=== PATIENT | female | born 1965 | race Caucasian/White ===

== ENCOUNTER 2020-06-11 13:52 | Emergency (ER) | payer BC ==
[2020-06-11 14:16] VITALS: BP 127/89; PULSE 75
[2020-06-11 15:20] LABS: ANION GAP 12.9 mEq/L (7-13); CHLORIDE,CL 105 mmol/L (98-107); SODIUM,NA 139 mmol/L (136-145)
--- NOTE | 2020-06-11 15:22 | EDM.PDOC ---
ED HPI GENERAL MEDICAL PROBLEM - General Chief Complaint: General Stated Complaint: UTI Time Seen by Provider: 06/11/20 14:30 Source of Information: Reports: Patient, RN, RN Notes Reviewed History Limitations: Reports: No Limitations - History of Present Illness INITIAL COMMENTS - FREE TEXT/NARRATIVE: Patient presents to the ED via personal vehicle for complaints of dysuria, marlena bility to completely void, headache, and dizziness. The patient reports she was treated for a UTI approximately one week ago by her primary care provider with Bactrim. She states she has still been experiencing symptoms of a UTI despite treatment. She denies fever, shaking chills, or palpitations. Additionally, the patient attests to headache which she has had for the past 10 days. She has been taking Excedrin migraine with [id number] improvement in symptoms. She attest to photophobia, phonophobia, nausea, vomiting, and diarrhea. The patient notes an increase in health problems since her filed for divorce from her in December 2019. She states she has been started on new anxiolytic medication. - Related Data Allergies Allergy/AdvReac Type Severity Reaction Status Date / Time amoxicillin Allergy Anaphylactic Verified 06/11/20 14:14 Shock aspirin Allergy Nausea and Verified 06/11/20 14:14 Vomiting cephalexin Allergy Swelling Verified 06/11/20 14:14 Home Meds: Home Meds Acetaminophen [Tylenol Extra Strength] 1,000 mg PO Q6H PRN 09/05/15 [History] Gabapentin 600 mg PO BID 09/05/15 [History] Omeprazole 20 mg PO DAILY PRN 04/13/18 [History] Gabapentin [Neurontin] 600 mg PO BID 09/02/18 [History] Zolpidem Tartrate 5 mg PO DAILY 09/02/18 [History] traZODone HCl [Trazodone HCl] 300 mg PO BEDTIME 09/02/18 [History] Topiramate 25 mg PO DAILY 02/07/19 [History] Butalb/Acetaminophen/Caffeine [Cjxzfi-Jddjkahl-Uuwp 50-325-40] 1 tab PO Q4HR 06/11/20 [History] Sulfamethoxazole/Trimethoprim [Bactrim Ds Tablet] 1 each PO BID 06/11/20 [History] hydrOXYzine pamoate [Hydroxyzine Pamoate] 25 mg PO BID 03/15/21 [History] Past Medical History HEENT History: Reports: Allergic Rhinitis, Impaired Vision, Macular Degeneration Cardiovascular History: Reports: Hypertension Other Cardiovascular History: resolved with gashtric bipass Respiratory History: Reports: None Gastrointestinal History: Reports: GERD Genitourinary History: Reports: Renal Calculus 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: , Spontaneous Musculoskeletal History: Reports: Back Pain, Chronic, Fibromyalgia, Other (See Below) Other Musculoskeletal History: restless legs Neurological History: Reports: None, Other (See Below) Other Neuro History: Insomnia Psychiatric History: Reports: Anxiety, Depression, PTSD Endocrine/Metabolic History: Reports: None Hematologic History: Reports: None Other Hematologic History: superior mesenteric vein thrombosis Immunologic History: Reports: None Oncologic (Cancer) History: Reports: None Dermatologic History: Reports: None - Infectious Disease History Infectious Disease History: Reports: Chicken Pox - Past Surgical History Head Surgeries/Procedures: Reports: None HEENT Surgical History: Reports: Adenoidectomy, Tonsillectomy Cardiovascular Surgical History: Reports: None Respiratory Surgical History: Reports: None GI Surgical History: Reports: Bariatric Procedure, Cholecystectomy, Colonoscopy, Other (See Below) Other GI Surgeries/Procedures: Laparoscopy gastric bypass Female Surgical History: Reports: Breast Biopsy, Section, Other (See Below), Tubal Ligation Other Female Surgeries/Procedures: Left overy removal due to cyst Musculoskeletal Surgical History: Reports: Carpal Tunnel Social & Family History - Family History Family Medical History: No Pertinent Family History - Tobacco Use Tobacco Use Status *Q: Former Tobacco User Used Tobacco, but Quit: Yes Month/Year Tobacco Last Used: 03/2007 - Caffeine Use Caffeine Use: Reports: Soda Caffeine Use Comment: 24 OZ POP DAILY - Recreational Drug Use Recreational Drug Use: Yes Recreational Drug Type: Reports: Marijuana/Hashish Other Recreational Drug Type: states has a green card ED ROS GENERAL - Review of Systems Review Of Systems: Comprehensive ROS is negative, except as noted in HPI. ED EXAM, GENERAL - Physical Exam Exam: See Below Exam Limited By: No Limitations General Appearance: Anxious Eye Exam: Bilateral Eye: EOMI, Normal Inspection, PERRL (3mm) Ears: Normal External Exam, Normal Canal, Hearing Grossly Normal, Normal TMs Ear Exam: Bilateral Ear: Auricle Normal, Canal Normal, TM normal Nose: Normal Inspection, Normal Mucosa, No Blood Throat/Mouth: Normal Inspection, Normal Voice, No Airway Compromise. No: Normal Teeth (Missing teeth; Patient is not wearing her dentures) Head: Atraumatic, Normocephalic Neck: Normal Inspection, Supple, Non-Tender, Full Range of Motion. No: Lymphadenopathy (L), Lymphadenopathy (R) Respiratory/Chest: No Respiratory Distress, Lungs Clear, Normal Breath Sounds, No Accessory Muscle Use, Chest Non-Tender Cardiovascular: Normal Peripheral Pulses, Regular Rate, Rhythm, No Edema, No Gallop, No JVD, No Murmur, No Rub Peripheral Pulses: 2+: Radial (L), Radial (R) GI/Abdominal: Normal Bowel Sounds, Soft, Non-Tender, No Organomegaly, No Distention, No Abnormal Bruit, No Mass (Female) Exam: Deferred Rectal (Female) Exam: Deferred Back Exam: Normal Inspection, Full Range of Motion. No: CVA Tenderness (L), CVA Tenderness (R) Extremities: Normal Inspection, Normal Range of Motion, Non-Tender, Normal Capillary Refill, No Pedal Edema Neurological: Alert, Oriented, CN II-XII Intact, Normal Cognition, Normal Reflexes, No Motor/Sensory Deficits, Abnormal Gait (Patient states a wobbly gait d/t dizziness) Psychiatric: Normal Affect, Normal Mood Skin Exam: Warm, Dry, Intact, Normal Color, No Rash. No: Ecchymosis, Erythema, Jaundice, Mottled, Pallor, Petechiae Course - Vital Signs Last Recorded V/S: Last Vital Signs Temp 97.8 F 06/11/20 14:14 Pulse 75 06/11/20 14:14 Resp 20 06/11/20 14:14 BP 127/89 06/11/20 14:14 Pulse Ox 100 06/11/20 14:14 - Orders/Labs/Meds Labs: Laboratory Tests 06/11/20 06/11/20 06/11/20 Range/Units 14:11 14:11 14:47 WBC 3.9 L (5.0-10.0) 10^3/uL RBC 4.11 L (4.2-5.4) 10^6/uL Hgb 13.0 (12.0-16.0) g/dL Hct 37.8 (37.0-47.0) % MCV 92.0 D (80-100) fL MCH 31.6 (27.0-34.0) pg MCHC 34.4 (33.0-35.0) g/dL Plt Count 221 (150-450) 10^3/uL Neut % (Auto) 70.0 (42.2-75.2) % Lymph % (Auto) 19.5 L (20.5-50.1) % Sully % (Auto) 8.2 H (2-8) % Eos % (Auto) 1.8 (1.0-3.0) % Baso % (Auto) 0.5 (0.0-1.0) % Sodium (136-145) mmol/L Potassium (3.5-5.1) mmol/L Chloride (98-107) mmol/L Carbon Dioxide (21-32) mmol/L Anion Gap (7-13) mEq/L BUN (7-18) mg/dL Creatinine (0.55-1.02) mg/dL Est Cr Clr Drug Dosing mL/min Estimated GFR (MDRD) BUN/Creatinine Ratio (No establ ref range) Glucose (74-99) mg/dL Calcium (8.5-10.1) mg/dL Total Bilirubin (0.2-1.0) mg/dL AST (15-37) U/L ALT (14-59) U/L Alkaline Phosphatase (46-116) U/L Ammonia (11-32) umol/L Total Protein (6.4-8.2) g/dL Albumin (3.4-5.0) g/dL Globulin Albumin/Globulin Ratio TSH, Ultra Sensitive (0.36-3.74) uIU/mL Urine Color Yellow (YELLOW) Urine Appearance Slightly cloudy (CLEAR) Urine pH 6.5 (5.0-9.0) Ur Specific [place] 1.020 (1.005-1.030) Urine Protein Negative (NEGATIVE) Urine Glucose (UA) Negative (NEGATIVE) Urine Ketones Negative (NEGATIVE) Urine Occult Blood Negative (NEGATIVE) Urine Nitrite Negative (NEGATIVE) Urine Bilirubin Negative (NEGATIVE) Urine Urobilinogen 0.2 (0.2-1.0) mg/dL Ur Leukocyte Esterase Negative (NEGATIVE) Urine Opiates Screen Negative (NEGATIVE) Ur Oxycodone Screen Negative (NEGATIVE) Urine Methadone Screen Negative (NEGATIVE) Ur Barbiturates Screen Positive H (NEGATIVE) U Tricyclic Antidepress Negative (NEGATIVE) Ur Phencyclidine Scrn Negative (NEGATIVE) Ur Amphetamine Screen Negative (NEGATIVE) U Methamphetamines Scrn Negative (NEGATIVE) Urine MDMA Screen Negative (NEGATIVE) U Benzodiazepines Scrn Positive H (NEGATIVE) Urine Cocaine Screen Negative (NEGATIVE) U Marijuana (THC) Screen Positive H (NEGATIVE) Ethyl Alcohol (0) mg/dL 06/11/20 06/11/20 Range/Units 14:47 14:47 WBC (5.0-10.0) 10^3/uL RBC (4.2-5.4) 10^6/uL Hgb (12.0-16.0) g/dL Hct (37.0-47.0) % MCV (80-100) fL MCH (27.0-34.0) pg MCHC (33.0-35.0) g/dL Plt Count (150-450) 10^3/uL Neut % (Auto) (42.2-75.2) % Lymph % (Auto) (20.5-50.1) % Sully % (Auto) (2-8) % Eos % (Auto) (1.0-3.0) % Baso % (Auto) (0.0-1.0) % Sodium 139 (136-145) mmol/L Potassium 2.9 L (3.5-5.1) mmol/L Chloride 105 (98-107) mmol/L Carbon Dioxide 24 (21-32) mmol/L Anion Gap 12.9 (7-13) mEq/L BUN 6 L (7-18) mg/dL Creatinine 0.86 (0.55-1.02) mg/dL Est Cr Clr Drug Dosing 59.70 mL/min Estimated GFR (MDRD) > 60 BUN/Creatinine Ratio 7.0 (No establ ref range) Glucose 119 H (74-99) mg/dL Calcium 7.6 L (8.5-10.1) mg/dL Total Bilirubin 0.2 (0.2-1.0) mg/dL AST 17 (15-37) U/L ALT 24 (14-59) U/L Alkaline Phosphatase 150 H (46-116) U/L Ammonia 55 H (11-32) umol/L Total Protein 5.6 L (6.4-8.2) g/dL Albumin 2.5 L (3.4-5.0) g/dL Globulin 3.1 Albumin/Globulin Ratio 0.81 TSH, Ultra Sensitive 2.97 (0.36-3.74) uIU/mL Urine Color (YELLOW) Urine Appearance (CLEAR) Urine pH (5.0-9.0) Ur Specific [place] (1.005-1.030) Urine Protein (NEGATIVE) Urine Glucose (UA) (NEGATIVE) Urine Ketones (NEGATIVE) Urine Occult Blood (NEGATIVE) Urine Nitrite (NEGATIVE) Urine Bilirubin (NEGATIVE) Urine Urobilinogen (0.2-1.0) mg/dL Ur Leukocyte Esterase (NEGATIVE) Urine Opiates Screen (NEGATIVE) Ur Oxycodone Screen (NEGATIVE) Urine Methadone Screen (NEGATIVE) Ur Barbiturates Screen (NEGATIVE) U Tricyclic Antidepress (NEGATIVE) Ur Phencyclidine Scrn (NEGATIVE) Ur Amphetamine Screen (NEGATIVE) U Methamphetamines Scrn (NEGATIVE) Urine MDMA Screen (NEGATIVE) U Benzodiazepines Scrn (NEGATIVE) Urine Cocaine Screen (NEGATIVE) U Marijuana (THC) Screen (NEGATIVE) Ethyl Alcohol < 3 (0) mg/dL Meds: Medications Discontinued Medications Generic Name Dose Route Start Last Admin Trade Name Freq PRN Reason Stop Dose Admin Potassium Chloride 10 meq/ 100 mls @ 100 mls/hr 06/11/20 15:44 06/11/20 16:07 Premix IV 06/11/20 16:43 100 mls/hr ONETIME ONE Administration Potassium Chloride 10 meq 06/11/20 17:40 06/11/20 17:46 Potassium Chloride 10 Meq Tab.Er PO 06/11/20 17:41 10 meq ONETIME ONE Administration - Re-Assessments/Exams Free Text/Narrative Re-Assessment/Exam: 06/11/20 CMP remarkable for potassium of 2.9 - replaced via IVPB with KCl 10mEq. No evidence of infection via CBC, no WBC elevation or left shift. UA unremarkable for acute processes. Tox positive for Barbituates, Benzos, and THC - patient has prescription for all medications. Patient states improvement following Potassium infusion and wants to go home. Will discharge patient home with additional PO potassium 10mEq and instructions to follow up with primary care provider. Patient verbalized understanding and agreement with the plan of care. Departure - Departure Time of Disposition: 17:40 Disposition: Home, Self-Care 01 Condition: Good Clinical Impression: Hypokalemia, Fall from ground level, Anxiety Nausea and vomiting Qualifiers: Vomiting type: unspecified Vomiting Intractability: non-intractable Qualified Code(s): R11.2 - Nausea with vomiting, unspecified Hematoma of frontal scalp Qualifiers: Encounter type: initial encounter Qualified Code(s): S00.03XA - Contusion of scalp, initial encounter - Discharge Information *PRESCRIPTION DRUG MONITORING PROGRAM REVIEWED*: Not Applicable *COPY OF PRESCRIPTION DRUG MONITORING REPORT IN PATIENT RODERICK: Not Applicable Instructions: Fall Prevention in the Home, Adult, [id number], Nausea and Vomiting, Adult, [id number] Forms: ED Department Discharge Additional Instructions: 1.) Follow up with your primary care provider in 1-2 days to recheck your Potassium. 2.) Drink small, frequent sips of water to avoid nausea. 3.) Eat a small, bland diet while experiencing nausea; avoid spicy, high-fat, and greasy foods. 4.) Discuss your mental health needs with your primary care provider, especially considering your recent life-changing events. Sepsis Event Note (ED) - Evaluation Sepsis Screening Result: No Definite Risk - Focused Exam Vital Signs: Vital Signs Temp Pulse Resp BP Pulse Ox 06/11/20 14:14 97.8 F 75 20 127/89 100
--- NOTE | 2020-06-11 15:31 | CT ---
EXAMINATION: Head wo Cont SEX: Female AGE: 55 years CLINICAL HISTORY: 55-year-old female with dizziness and headaches (recent falls). MRI results 24 May 2020 for "possible delayed adverse sequela associated with vaccination, mid April" was reportedly "negative". Scan technique: Volume acquisition of data emergency unenhanced CT scan of the head and brain obtained with patient lying supine on the Siemens multislice scanner [place], [place]. All data archived in the PACS system for storage, reformatting axial/sagittal/coronal planes and study. Interpretation: 1. Right frontal (supraorbital) extracranial scalp contusion or hematoma. No foreign bodies. No laceration. 2. Uniformly thick bony calvarium without sign of skull fracture, underlying brain contusion or abnormal extracerebral/intracranial epidural or subdural hematoma. 3. Symmetric clear pneumatization of the paranasal and mastoid sinuses. Nasal septum is straight midline. 4. No new evidence of intracerebral, intraventricular or subarachnoid bleed. 5. No supratentorial or posterior fossa mass lesion. No midline shift (Midline pineal and symmetric choroid plexus calcifications. 6. No new focal areas of ischemic infarct or signs of encephalomalacia. No arachnoid cyst. CONCLUSION: Frontal scalp contusion. Otherwise negative emergency unenhanced CT scan head and brain. No new evidence intracranial mass, hydrocephalus or acute bleed (comparison MRI 24 May 2020). No brain contusion, cerebral edema, ischemic stroke or intracranial hemorrhage.
[2020-06-11] MEDS ORDERED: Potassium Chloride 10 MEQ in Premix Bag 1 BAG IV ONE (15:44)
[2020-06-11] MEDS ORDERED: Potassium Chloride 10 MEQ Tab.ER PO ONE (17:40)
== END 2020-06-11 17:54 | disposition home or self-care (01) ==
LOC: DL.ED 13:52
DX: S00.03XA Contusion of scalp, initial encounter (principal); E87.6 Hypokalemia; F41.9 Anxiety disorder, unspecified; K21.9 Gastro-esophageal reflux disease without esophagitis; I10 Essential (primary) hypertension; R11.2 Nausea with vomiting, unspecified; Z88.6 Allergy status to analgesic agent; Z88.1 Allergy status to other antibiotic agents; Z88.0 Allergy status to penicillin; Z79.899 Other long term (current) drug therapy; Z87.891 Personal history of nicotine dependence; W18.30XA Fall on same level, unspecified, initial encounter
CPT/HCPCS: 36415; 70450; 80053; 80305; 80307; 81003; 82140; 84443; 85025; 96365; 99284; A9270; J3480

== ENCOUNTER 2021-01-30 06:35 | Day surgery (SDC) | payer BC ==
[~2021-01-30 06:35] MED LIST: Dextrose 5%-0.45% NaCl 1,000 ML IV SCH; Midazolam 1 MG/ML 2 ML SDV ONE; Sodium Chloride 0.9% 10 ML Syringe FLUSH PRN; fentaNYL 100 MCG/2 ML SDV ONE
[2021-01-30] MEDS ORDERED: fentaNYL 100 MCG/2 ML SDV IV ONE ×3 (06:36→08:00)
[2021-01-30] MEDS ORDERED: Midazolam 1 MG/ML 2 ML SDV IV ONE ×3 (06:36→08:01)
[2021-01-30 09:58] VITALS: BP 106/62; PULSE 58
[2021-01-30] MEDS ORDERED: Iopamidol 612 MG/ML 100 ML Bottle IVPUSH ONE (13:30)
[2021-01-30] MEDS ORDERED: Barium Sulfate w/v 2.1% Oral Susp 450 ML Bottle PO ONE (13:30)
--- NOTE | 2021-01-30 14:34 | OR ---
DATE: 01/30/2021 PROCEDURE: Esophagogastroduodenoscopy and multiple pinch biopsies. INSTRUMENT USED: [id number]-[id number] Olympus video panendoscope. PREMEDICATIONS: No oral or topical anesthesia used. Fentanyl 100 mcg intravenous, Versed 2 mg intravenous. The procedure was done under pulse oximetry, BP recording, and air sampling and monitoring. INDICATION: The patient with previous bariatric surgery with persistent throat discomfort and history of hematemesis, on PPI. Esophagogastroduodenoscopy is performed for detection of any active erosive lesions, Dempsey esophagus and/or malignancy also under consideration, H pylori status to be determined, endoscopic hemostasis therapy if needed. DESCRIPTION OF PROCEDURE: The scope was passed with ease. Adequate visualization of the esophagus was made from proximal to distal areas. No upper esophageal lesions identified. No distal esophageal stricture. No uphill or downhill esophageal varices. No Shelley-Alvarez tear. No evidence of erosive esophagitis by Freedom criteria. Z-line was seen at around 30 cm distal to the oral verge, 4-quadrant biopsies were taken and sent for any histopathologic evidence of intestinal metaplasia. No esophageal polyp or tumor mass identified. No proximal gastric varices noted. Gastric fundus examination showed no polypoid lesions. Multiple pinch biopsies were taken from the distal and proximal gastric mucosa and sent for PyloriTek test for H pylori and histopathology. No vascular ectasia or malignant mass identified. Benign appearing less than 1 cm sized ulcers were noted in the anastomotic area, photographs were taken, numerous pinch biopsies, 4 in number were taken from the larger ulcers and sent for histopathology. Visualized loops of the small bowel were unremarkable. Photographs were taken of the fundus and distal esophagus. No bleeding was noted from any of the visualized areas at the completion of examination. IMPRESSION: Anastomotic ulcers. The patient tolerated the procedure well. MODL /[id number] [facility] CENTERIke
--- NOTE | 2021-01-30 14:43 | LETTER ---
01/30/2021 RE: VIVIANA TEMPLEJAQUELINE : 1965 Ava Verdugo MD [facility], [place] [address] Verdugo: Ms. Wall VivianaBetty had esophagogastroduodenoscopy done this morning and she tolerated the procedure well. I herewith send a copy of the endoscopy note and photographs for your review. Thank you. Sincerely, [facility] /[id number]
== END 2021-01-30 10:00 | disposition home or self-care (01) ==
LOC: DL.ENDO 06:35
PROVIDERS: ATTEND Internal Medicine Gastroenterology
DX: K28.9 Gastrojejunal ulcer, unspecified as acute or chronic, without hemorrhage or perforation (principal); K29.50 Unspecified chronic gastritis without bleeding; K31.A0 Gastric intestinal metaplasia, unspecified; E66.09 Other obesity due to excess calories; Z98.84 Bariatric surgery status; F41.1 Generalized anxiety disorder; F43.10 Post-traumatic stress disorder, unspecified; G47.00 Insomnia, unspecified; G89.4 Chronic pain syndrome; J44.9 Chronic obstructive pulmonary disease, unspecified; Z87.891 Personal history of nicotine dependence; Z90.49 Acquired absence of other specified parts of digestive tract; Z98.890 Other specified postprocedural states; Z88.8 Allergy status to other drugs, medicaments and biological substances
CPT/HCPCS: 43239; J2250; J3010; J7042

== ENCOUNTER 2021-08-28 10:52 | Emergency (ER) | payer BC, MEDICAID | END 2021-08-28 12:13 | disposition left against medical advice (07) | LOC: DL.ED 10:52 | DX: E86.0 Dehydration (principal); Z53.21 Procedure and treatment not carried out due to patient leaving prior to being seen by health care provider ==

== ENCOUNTER 2022-10-06 08:10 | Emergency (ER) | payer MEDICAID ==
[2022-10-06 08:35] VITALS: BP 99/78; PULSE 50
[2022-10-06 08:45] LABS: BASOPHILS PERCENT AUTO 1.3 % (0.0-1.0); EOSINOPHILS PERCENT AUTO 3.3 % (1.0-3.0); HEMATOCRIT 37.7 % (37.0-47.0); HEMOGLOBIN 12.4 g/dL (12.0-16.0); LYMPHOCYTES PERCENT AUTO 38.1 % (20.5-50.1); MEAN CORPUSCULAR HEMOGLOBIN 33.7 pg (27.0-34.0); MEAN CORPUSCULAR HGB CONC 32.9 g/dL (33.0-35.0); MEAN CORPUSCULAR VOLUME 102.4 fL (80-100); MONOCYTES PERCENT AUTO 11.7 % (2-8); NEUTROPHILS PERCENT AUTO 45.6 % (42.2-75.2); PLATELET COUNT,PLT 185 10^3/uL (150-450); RED BLOOD CELL COUNT 3.68 10^6/uL (4.2-5.4)
[2022-10-06 08:54] LABS: AMPHETAMINES,URINE NEGATIVE (NEGATIVE); BARBITURATES,URINE NEGATIVE (NEGATIVE); BENZODIAZEPINE,URINE NEGATIVE (NEGATIVE); MDMA (ECSTASY), URINE NEGATIVE (NEGATIVE); METHADONE,URINE NEGATIVE (NEGATIVE); METHAMPHETAMINES,URINE NEGATIVE (NEGATIVE); OPIATES,URINE NEGATIVE (NEGATIVE); OXYCODONE,URINE NEGATIVE (NEGATIVE); PHENCYCLIDINE,URINE NEGATIVE (NEGATIVE); TCA,URINE POSITIVE (NEGATIVE)
[2022-10-06 09:09] LABS: INR 1.1 (0.9-1.2); PROTHROMBIN TIME 10.8 SEC (9.0-12.0); PTT,PARTIAL THROMBOPLSTIN TIME 25.9 SEC (22.0-34.0)
[2022-10-06 09:13] LABS: ALBUMIN 3.3 g/dL (3.4-5.0); BILIRUBIN TOTAL 0.4 mg/dL (0.2-1.0); BUN/CREATININE RATIO 10.3 (No establ ref range); CALCIUM 8.1 mg/dL (8.5-10.1); CREATININE 0.97 mg/dL (0.55-1.02); EST CRCL DRUG DOSING (CG) 51.66 mL/min; MAGNESIUM 2.3 mg/dL (1.8-2.4); PROTEIN TOTAL,TP 6.3 g/dL (6.4-8.2); TSH ULTRASENSITIVE 14.87 uIU/mL (0.36-3.74)
[2022-10-06 09:14] LABS: A/G RATIO 1.1
[2022-10-06] MEDS ORDERED: Potassium Chloride 10 MEQ Tab.ER PO ONE (10:12)
== END 2022-10-06 10:22 | disposition home or self-care (01) ==
LOC: DL.ED 08:10
DX: E87.6 Hypokalemia (principal); R94.6 Abnormal results of thyroid function studies; I10 Essential (primary) hypertension; K21.9 Gastro-esophageal reflux disease without esophagitis; Z86.69 Personal history of other diseases of the nervous system and sense organs; Z86.16 Personal history of COVID-19; Z88.0 Allergy status to penicillin; Z88.8 Allergy status to other drugs, medicaments and biological substances; Z88.1 Allergy status to other antibiotic agents; Z79.899 Other long term (current) drug therapy
CPT/HCPCS: 36415; 70450; 80053; 80305; 83735; 84443; 85025; 85610; 85730; 99284; A9270

== ENCOUNTER 2022-10-29 15:41 | Emergency (ER) | payer MEDICAID ==
[2022-10-29] MEDS ORDERED: Sodium Chloride 0.9% 10 ML Syringe FLUSH PRN (16:02)
[2022-10-29] MEDS ORDERED: Sodium Chloride 0.9% 1,000 ML IV ONE (16:03)
[2022-10-29 16:12] VITALS: BP 129/85; PULSE 78
[2022-10-29 16:24] LABS: HEMATOCRIT 33.8 % (37.0-47.0); HEMOGLOBIN 11.5 g/dL (12.0-16.0); MEAN CORPUSCULAR HEMOGLOBIN 32.4 pg (27.0-34.0); MEAN CORPUSCULAR VOLUME 95.2 fL (80-100); PLATELET COUNT,PLT 387 10^3/uL (150-450); RED BLOOD CELL COUNT 3.55 10^6/uL (4.2-5.4); WHITE BLOOD CELL COUNT,WBC 8.7 10^3/uL (5.0-10.0)
[2022-10-29 16:43] LABS: BASOPHILS PERCENT AUTO 0.2 % (0.0-1.0); EOSINOPHILS PERCENT AUTO 0.7 % (1.0-3.0); MONOCYTES PERCENT AUTO 9.2 % (2-8); NEUTROPHILS PERCENT AUTO 78.9 % (42.2-75.2)
[2022-10-29 16:52] LABS: LACTIC ACID 1.3 mmol/L (0.4-2.0)
[2022-10-29 17:01] LABS: ALBUMIN 2.2 g/dL (3.4-5.0); ANION GAP 12.9 mEq/L (7-13); BILIRUBIN TOTAL 0.6 mg/dL (0.2-1.0); BUN/CREATININE RATIO 10.9 (No establ ref range); CALCIUM 7.9 mg/dL (8.5-10.1); CREATININE 0.92 mg/dL (0.55-1.02); EST CRCL DRUG DOSING (CG) 54.46 mL/min; MAGNESIUM 2.1 mg/dL (1.8-2.4); POTASSIUM,K 3.9 mmol/L (3.5-5.1); PROTEIN TOTAL,TP 5.8 g/dL (6.4-8.2)
[2022-10-29 17:07] LABS: A/G RATIO 0.61
[2022-10-29 17:13] LABS: APPEARANCE,URINE CLEAR (CLEAR); BILIRUBIN,URINE NEGATIVE (NEGATIVE); COLOR,URINE YELLOW (YELLOW); GLUCOSE,URINE NEGATIVE (NEGATIVE); KETONES,URINE NEGATIVE (NEGATIVE); LEUKOCYTE ESTERASE,URINE NEGATIVE (NEGATIVE); NITRITE,URINE NEGATIVE (NEGATIVE); OCCULT BLOOD,URINE NEGATIVE (NEGATIVE); PROTEIN,URINE NEGATIVE (NEGATIVE); UROBILINOGEN,URINE 0.2 mg/dL (0.2-1.0)
[2022-10-29 17:17] LABS: AMPHETAMINES,URINE NEGATIVE (NEGATIVE); BARBITURATES,URINE NEGATIVE (NEGATIVE); BENZODIAZEPINE,URINE NEGATIVE (NEGATIVE); MDMA (ECSTASY), URINE NEGATIVE (NEGATIVE); METHADONE,URINE NEGATIVE (NEGATIVE); METHAMPHETAMINES,URINE NEGATIVE (NEGATIVE); OPIATES,URINE NEGATIVE (NEGATIVE); OXYCODONE,URINE NEGATIVE (NEGATIVE); PHENCYCLIDINE,URINE NEGATIVE (NEGATIVE); TCA,URINE NEGATIVE (NEGATIVE)
[2022-10-29 17:33] LABS: ANISOCYTOSIS 1+ SLIGHT; BAND PERCENT MAN 1 %; EOSINOPHILS PERCENT MAN 1 % (1-3); LYMPHOCYTES PERCENT MAN 13 % (20-50); MONOCYTES PERCENT MAN 4 % (2-8); MYELOCYTE PERCENT MAN 1; SEG NEUTROPHILS PERCENT MAN 80 % (42-75); TOXIC GRANULATION 1+ SLIGHT
[2022-10-29 17:34] LABS: PLATELET COUNT ESTIMATE ADEQUATE
[2022-10-29] MEDS ORDERED: Take Home: traMADol 50 MG, 4 Tab Pack PO ONE (18:43)
== END 2022-10-29 19:07 | disposition home or self-care (01) ==
LOC: DL.ED 15:41
DX: E86.0 Dehydration (principal); M62.82 Rhabdomyolysis; I10 Essential (primary) hypertension; K21.9 Gastro-esophageal reflux disease without esophagitis; Z86.16 Personal history of COVID-19; Z79.899 Other long term (current) drug therapy; Z88.6 Allergy status to analgesic agent; Z88.1 Allergy status to other antibiotic agents
CPT/HCPCS: 36415; 70450; 71045; 80053; 80305; 81003; 82550; 83605; 83735; 83880; 84145; 84484; 85025; 85379; 96360; 99285; A9270; J7030; 93010; 99284; J3490

== ENCOUNTER 2022-11-03 10:45 | Observation (INO) | payer MEDICAID ==
[2022-11-03] MEDS ORDERED: Sodium Chloride 0.9% 10 ML Syringe FLUSH PRN (11:25)
[2022-11-03 11:54] LABS: HEMATOCRIT 33.4 % (37.0-47.0); MEAN CORPUSCULAR HEMOGLOBIN 32.1 pg (27.0-34.0); MEAN CORPUSCULAR HGB CONC 32.9 g/dL (33.0-35.0); MEAN CORPUSCULAR VOLUME 97.4 fL (80-100); PLATELET COUNT,PLT 556 10^3/uL (150-450); RED BLOOD CELL COUNT 3.43 10^6/uL (4.2-5.4); WHITE BLOOD CELL COUNT,WBC 8.5 10^3/uL (5.0-10.0)
[2022-11-03 11:56] LABS: BASOPHILS PERCENT AUTO 0.2 % (0.0-1.0); EOSINOPHILS PERCENT AUTO 0.5 % (1.0-3.0); LYMPHOCYTES PERCENT AUTO 9.9 % (20.5-50.1); MONOCYTES PERCENT AUTO 10.1 % (2-8); NEUTROPHILS PERCENT AUTO 79.3 % (42.2-75.2)
[2022-11-03 12:00] LABS: EOSINOPHILS PERCENT MAN 2 % (1-3); LYMPHOCYTES PERCENT MAN 3 % (20-50); MONOCYTES PERCENT MAN 6 % (2-8); SEG NEUTROPHILS PERCENT MAN 89 % (42-75)
[2022-11-03 12:08] LABS: ANION GAP 16.6 mEq/L (7-13); BILIRUBIN TOTAL 0.5 mg/dL (0.2-1.0); BUN/CREATININE RATIO 10.8 (No establ ref range); CALCIUM 7.7 mg/dL (8.5-10.1); CREATININE 0.74 mg/dL (0.55-1.02); EST CRCL DRUG DOSING (CG) 67.71 mL/min; MAGNESIUM 2.1 mg/dL (1.8-2.4); POTASSIUM,K 3.6 mmol/L (3.5-5.1); PROTEIN TOTAL,TP 5.6 g/dL (6.4-8.2); T4 FREE 1.11 ng/dL (0.76-1.46); TSH ULTRASENSITIVE 6.23 uIU/mL (0.36-3.74)
[2022-11-03 12:17] LABS: A/G RATIO 0.56
[2022-11-03 13:46] LABS: APPEARANCE,URINE CLEAR (CLEAR); BILIRUBIN,URINE SMALL (NEGATIVE); COLOR,URINE DARK YELLOW (YELLOW); GLUCOSE,URINE NEGATIVE (NEGATIVE); KETONES,URINE >=160 (NEGATIVE); LEUKOCYTE ESTERASE,URINE NEGATIVE (NEGATIVE); NITRITE,URINE NEGATIVE (NEGATIVE); OCCULT BLOOD,URINE NEGATIVE (NEGATIVE); PH,URINE 6.5 (5.0-9.0); PROTEIN,URINE TRACE (NEGATIVE)
[2022-11-03 13:51] LABS: AMPHETAMINES,URINE NEGATIVE (NEGATIVE); BARBITURATES,URINE NEGATIVE (NEGATIVE); BENZODIAZEPINE,URINE NEGATIVE (NEGATIVE); MDMA (ECSTASY), URINE NEGATIVE (NEGATIVE); METHADONE,URINE NEGATIVE (NEGATIVE); METHAMPHETAMINES,URINE NEGATIVE (NEGATIVE); OPIATES,URINE NEGATIVE (NEGATIVE); OXYCODONE,URINE NEGATIVE (NEGATIVE); PHENCYCLIDINE,URINE NEGATIVE (NEGATIVE); TCA,URINE NEGATIVE (NEGATIVE)
[2022-11-03 13:55] LABS: BACTERIA,URINE FEW /HPF (0-FEW/HPF); EPITHELIAL CELLS,URINE FEW /HPF (NOT SEEN); MUCUS,URINE FEW /LPF (NOT SEEN); RBC,URINE 0-5 /HPF (0-5); WBC,URINE 0-5 /HPF (0-5/HPF)
[2022-11-03] MEDS ORDERED: Ondansetron 4 MG/2 ML SDV IVPUSH PRN (16:17)
[2022-11-03] MEDS ORDERED: Morphine 2 MG/ML SYRINGE IVPUSH PRN (16:17)
[2022-11-03] MEDS ORDERED: Albuterol/Ipratropium 3.0-0.5 MG/3 ML Neb Soln NEB PRN (16:17)
[2022-11-03] MEDS ORDERED: Docusate Sodium 100 MG Cap PO PRN (16:17)
[2022-11-03] MEDS ORDERED: Acetaminophen/HYDROcodone 325-5 MG Tab PO PRN (16:17)
[2022-11-03] MEDS ORDERED: ClonazePAM 0.5 MG Tab PO PRN (16:25)
[2022-11-03] MEDS ORDERED: Albuterol 6.7 GM Inhaler INH PRN (16:25)
[2022-11-03] MEDS ORDERED: hydrALAZINE 20 MG/ML SDV IVPUSH PRN (16:30)
[2022-11-03] MEDS ORDERED: Gadobenate Dimeglumine 529 MG/ML 15 ML SDV IVPUSH ONE (17:36)
[2022-11-03 17:56] LABS: INR 1.2 (0.9-1.2); PROTHROMBIN TIME 12.1 SEC (9.0-12.0)
[2022-11-03 18:10] LABS: C-REACTIVE PROTEIN 2.2 mg/dL (0.0-0.9); PHOSPHORUS 1.8 mg/dL (2.6-4.7)
[2022-11-03] MEDS: Acetaminophen 325 MG Tab PO PRN (18:23)
[2022-11-03] MEDS ORDERED: Gabapentin 300 MG Cap PO SCH (21:00)
[2022-11-03] MEDS: QUEtiapine 100 MG Tab PO SCH (21:38)
[2022-11-03] MEDS: Zolpidem 5 MG Tab PO PRN (21:38)
[2022-11-03] MEDS: traZODone 50 MG Tab PO SCH (21:38)
[2022-11-03] MEDS: Gabapentin 100 MG Cap PO SCH (22:01)
[2022-11-04] MEDS: Dextrose 5%-0.9% NaCl with KCl 1,000 ML IV SCH ×2 (03:49→17:49)
[2022-11-04 06:12] LABS: HEMATOCRIT 29.5 % (37.0-47.0); HEMOGLOBIN 9.9 g/dL (12.0-16.0); MEAN CORPUSCULAR HEMOGLOBIN 32.4 pg (27.0-34.0); MEAN CORPUSCULAR HGB CONC 33.6 g/dL (33.0-35.0); MEAN CORPUSCULAR VOLUME 96.4 fL (80-100); PLATELET COUNT,PLT 439 10^3/uL (150-450); RED BLOOD CELL COUNT 3.06 10^6/uL (4.2-5.4); WHITE BLOOD CELL COUNT,WBC 7.4 10^3/uL (5.0-10.0)
[2022-11-04 06:19] LABS: BASOPHILS PERCENT AUTO 0.3 % (0.0-1.0); EOSINOPHILS PERCENT AUTO 1.1 % (1.0-3.0); LYMPHOCYTES PERCENT AUTO 15.5 % (20.5-50.1); MONOCYTES PERCENT AUTO 12.7 % (2-8); NEUTROPHILS PERCENT AUTO 70.4 % (42.2-75.2)
[2022-11-04 06:23] LABS: ALBUMIN 1.6 g/dL (3.4-5.0); ANION GAP 9.9 mEq/L (7-13); BILIRUBIN TOTAL 0.3 mg/dL (0.2-1.0); BUN/CREATININE RATIO 11.5 (No establ ref range); CREATININE 0.52 mg/dL (0.55-1.02); EST CRCL DRUG DOSING (CG) 96.36 mL/min; POTASSIUM,K 2.9 mmol/L (3.5-5.1); PROTEIN TOTAL,TP 4.8 g/dL (6.4-8.2)
[2022-11-04 06:24] LABS: A/G RATIO 0.5
[2022-11-04 06:44] LABS: HEMOGLOBIN A1C 5.5 % (<5.7)
[2022-11-04 06:54] LABS: EOSINOPHILS PERCENT MAN 1 % (1-3); LYMPHOCYTES PERCENT MAN 12 % (20-50); MONOCYTES PERCENT MAN 16 % (2-8); SEG NEUTROPHILS PERCENT MAN 71 % (42-75)
[2022-11-04] MEDS ORDERED: Potassium Phosphates 15 MMOLE in Sodium Chloride 0.9% 100 ML IV ONE (08:41)
[2022-11-04] MEDS: Enoxaparin 40 MG/0.4 ML Syringe SUBCUT SCH (10:05)
[2022-11-04] MEDS: Potassium Chloride 10 MEQ Tab.ER PO SCH ×4 (10:06→17:51)
[2022-11-04] MEDS: Montelukast 10 MG Tab PO SCH (10:06)
[2022-11-04] MEDS: QUEtiapine 100 MG Tab PO SCH ×2 (10:06→23:17)
[2022-11-04] MEDS: Topiramate 25 MG Tab PO SCH (10:07)
[2022-11-04] MEDS: DULoxetine 30 MG Cap PO SCH (10:07)
[2022-11-04] MEDS: Gabapentin 100 MG Cap PO SCH ×2 (10:07→23:18)
[2022-11-04] MEDS: Phosphorus #1 250 MG Tab PO SCH ×3 (10:08→17:52)
[2022-11-04] MEDS ORDERED: Sodium Chloride 0.9% 500 ML IV SCH (12:00)
[2022-11-04] MEDS: Levothyroxine 50 MCG Tab PO SCH (15:58)
[2022-11-04] MEDS: Omeprazole 20 MG Cap.CR PO PRN (16:07)
[2022-11-04] MEDS: Acetaminophen 325 MG Tab PO PRN (20:49)
[2022-11-04] MEDS ORDERED: Calcium Carbonate 500 MG Tab.Chew PO PRN (21:38)
[2022-11-04] MEDS: Carboxymethylcellulose Sodium 1% Ophth Gel 0.4 ML UD EYEBOTH PRN (23:17)
[2022-11-04] MEDS: Zolpidem 5 MG Tab PO PRN (23:17)
[2022-11-04] MEDS: traZODone 50 MG Tab PO SCH (23:18)
[2022-11-05] MEDS: Dextrose 5%-0.9% NaCl with KCl 1,000 ML IV SCH (03:27)
[2022-11-05] MEDS: Omeprazole 20 MG Cap.CR PO PRN (05:31)
[2022-11-05] MEDS: Levothyroxine 50 MCG Tab PO SCH (05:31)
[2022-11-05 05:45] LABS: HEMATOCRIT 32.2 % (37.0-47.0); HEMOGLOBIN 10.6 g/dL (12.0-16.0); MEAN CORPUSCULAR HGB CONC 32.9 g/dL (33.0-35.0); MEAN CORPUSCULAR VOLUME 97.3 fL (80-100); PLATELET COUNT,PLT 560 10^3/uL (150-450); RED BLOOD CELL COUNT 3.31 10^6/uL (4.2-5.4); WHITE BLOOD CELL COUNT,WBC 7.3 10^3/uL (5.0-10.0)
[2022-11-05 06:03] LABS: BASOPHILS PERCENT AUTO 0.5 % (0.0-1.0); EOSINOPHILS PERCENT AUTO 1.5 % (1.0-3.0); LYMPHOCYTES PERCENT AUTO 24.4 % (20.5-50.1); NEUTROPHILS PERCENT AUTO 59.6 % (42.2-75.2)
[2022-11-05 06:10] LABS: ALBUMIN 1.8 g/dL (3.4-5.0); ANION GAP 12.4 mEq/L (7-13); BILIRUBIN TOTAL 0.3 mg/dL (0.2-1.0); BUN/CREATININE RATIO 7.4 (No establ ref range); CALCIUM 7.3 mg/dL (8.5-10.1); CREATININE 0.54 mg/dL (0.55-1.02); EST CRCL DRUG DOSING (CG) 92.79 mL/min; PHOSPHORUS 2.1 mg/dL (2.6-4.7); POTASSIUM,K 4.4 mmol/L (3.5-5.1)
[2022-11-05 06:17] LABS: A/G RATIO 0.56
[2022-11-05 06:23] LABS: EOSINOPHILS PERCENT MAN 2 % (1-3); LYMPHOCYTES PERCENT MAN 26 % (20-50); MONOCYTES PERCENT MAN 11 % (2-8); SEG NEUTROPHILS PERCENT MAN 61 % (42-75)
[2022-11-05] MEDS: DULoxetine 30 MG Cap PO SCH (08:19)
[2022-11-05] MEDS: Phosphorus #1 250 MG Tab PO SCH ×2 (08:19→10:35)
[2022-11-05] MEDS: Montelukast 10 MG Tab PO SCH (08:19)
[2022-11-05] MEDS: Gabapentin 100 MG Cap PO SCH (08:20)
[2022-11-05] MEDS: QUEtiapine 100 MG Tab PO SCH (08:20)
[2022-11-05] MEDS: Topiramate 25 MG Tab PO SCH (08:20)
[2022-11-05] MEDS: Enoxaparin 40 MG/0.4 ML Syringe SUBCUT SCH (08:21)
[2022-11-05] MEDS: Acetaminophen 325 MG Tab PO PRN (10:40)
[2022-11-05] MEDS: Carboxymethylcellulose Sodium 1% Ophth Gel 0.4 ML UD EYEBOTH PRN (10:44)
[2022-11-05] MEDS ORDERED: Phosphorus #1 250 MG Tab PO ONE (11:49)
[2022-11-05 14:03] VITALS: BP 89/54; PULSE 72
== END 2022-11-05 14:40 | disposition home or self-care (01) ==
LOC: DL.ED 10:45 → UNDOADMOB 15:38 → DL.MS 15:38
PROVIDERS: ADMIT Internal Medicine; ATTEND Internal Medicine
DX: R55 Syncope and collapse (principal); G89.4 Chronic pain syndrome; R53.1 Weakness; M79.7 Fibromyalgia; E83.39 Other disorders of phosphorus metabolism; E87.6 Hypokalemia; F32.A Depression, unspecified; F41.0 Panic disorder [episodic paroxysmal anxiety]; F43.10 Post-traumatic stress disorder, unspecified; M47.814 Spondylosis without myelopathy or radiculopathy, thoracic region; M48.02 Spinal stenosis, cervical region; R29.6 Repeated falls; Z79.899 Other long term (current) drug therapy; Z79.890 Hormone replacement therapy; Z88.0 Allergy status to penicillin; Z88.1 Allergy status to other antibiotic agents; Z86.16 Personal history of COVID-19; Z98.890 Other specified postprocedural states; Z90.49 Acquired absence of other specified parts of digestive tract; Z88.6 Allergy status to analgesic agent
CPT/HCPCS: 36415; 70553; 71045; 72141; 72146; 80053; 80305-QW; 80307; 81001; 81025; 82550; 83036; 83605; 83615; 83735; 83880; 84100; 84145; 84439; 84443; 84484; 85025; 85610; 85651; 86140; 87040; 93005; 93010; 96365; 96366; 96372; 96375; 97161-GP; 97165-GO; 99222; 99232; 99239; 99285; A9270-GY; A9577; G0378; J1650; J2270; J2405; J3480; J3490

== ENCOUNTER 2023-05-21 07:17 | Day surgery (SDC) | payer MEDICAID ==
[2023-05-21] MEDS ORDERED: Midazolam 1 MG/ML 2 ML SDV ONE (07:33)
[2023-05-21] MEDS ORDERED: fentaNYL 100 MCG/2 ML SDV ONE (07:34)
[2023-05-21] MEDS: Dextrose 5%-0.45% NaCl 1,000 ML IV SCH (07:55)
[2023-05-21] MEDS: fentaNYL 100 MCG/2 ML SDV IV ONE ×3 (08:06→08:09)
[2023-05-21] MEDS: Midazolam 1 MG/ML 2 ML SDV IV ONE ×2 (08:07→08:08)
[2023-05-21 09:43] VITALS: BP 74/46; PULSE 55
== END 2023-05-21 10:20 | disposition home or self-care (01) ==
LOC: DL.ENDO 07:17
PROVIDERS: ATTEND Internal Medicine Gastroenterology
DX: R10.10 Upper abdominal pain, unspecified (principal); R11.2 Nausea with vomiting, unspecified; I10 Essential (primary) hypertension; F32.A Depression, unspecified; F41.9 Anxiety disorder, unspecified; G89.4 Chronic pain syndrome; J44.9 Chronic obstructive pulmonary disease, unspecified; Z79.899 Other long term (current) drug therapy; Z79.890 Hormone replacement therapy; Z98.84 Bariatric surgery status
CPT/HCPCS: 87077; J2250; J3010; J7042

== ENCOUNTER 2025-01-06 10:58 | Emergency (ER) | payer MEDICAID ==
[2025-01-06] MEDS ORDERED: Sodium Chloride 0.9% 10 ML Syringe FLUSH PRN (11:18)
[2025-01-06 11:42] LABS: PLATELET COUNT,PLT 202 10^3/uL (150-450); RED BLOOD CELL COUNT 4.53 10^6/uL (4.2-5.4); WHITE BLOOD CELL COUNT,WBC 5.0 10^3/uL (5.0-10.0)
[2025-01-06 11:57] LABS: INR 1.0 (0.9-1.2)
[2025-01-06 12:04] LABS: A/G RATIO 0.94; ALANINE AMINOTRANSFERASE,ALT 17.0 U/L (14-59); ASPARTATE AMNIOTRANSFERASE,AST 16.0 U/L (15-37); BILIRUBIN TOTAL 0.4 mg/dL (0.2-1.0); BLOOD UREA NITROGEN,BUN 7.0 mg/dL (7-18); CARBON DIOXIDE,CO2 23.0 mmol/L (21-32); CHLORIDE,CL 113.0 mmol/L (98-107); CREATININE 0.75 mg/dL (0.55-1.02); EST CRCL DRUG DOSING (CG) 62.3 mL/min; ESTIMATED GFR 91.0 mL/min (>=60); GLUCOSE RANDOM 112.0 mg/dL (70-99); POTASSIUM,K 3.8 mmol/L (3.5-5.1); PROTEIN TOTAL,TP 6.4 g/dL (6.4-8.2); SODIUM,NA 145.0 mmol/L (136-145)
[2025-01-06 12:07] LABS: BAND PERCENT MAN 1 %; BASOPHILS PERCENT AUTO 0.6 % (0.0-1.0); EOSINOPHILS PERCENT AUTO 8.3 % (1.0-3.0); LYMPHOCYTES PERCENT AUTO 27.6 % (20.5-50.1); LYMPHOCYTES PERCENT MAN 35 % (20-50); MONOCYTES PERCENT AUTO 10.1 % (2-8); MONOCYTES PERCENT MAN 14 % (2-8); NEUTROPHILS PERCENT AUTO 53.4 % (42.2-75.2); SEG NEUTROPHILS PERCENT MAN 44 % (42-75)
[2025-01-06 12:08] LABS: EOSINOPHILS PERCENT MAN 6 % (1-3)
[2025-01-06] MEDS: Heparin Sodium 5,000 Units/ML Vial IVPUSH ONE (12:26)
[2025-01-06] MEDS: Heparin Sodium/0.45% NaCl 25,000 UNITS/500 ML BAG IV SCH (12:27)
[2025-01-06 12:46] VITALS: BP 120/94; PULSE 71
== END 2025-01-06 12:58 ==
LOC: DL.ED 10:58
DX: I20.0 Unstable angina (principal); K21.9 Gastro-esophageal reflux disease without esophagitis; Z86.16 Personal history of COVID-19; Z79.899 Other long term (current) drug therapy; Z88.0 Allergy status to penicillin; Z88.5 Allergy status to narcotic agent; Z88.8 Allergy status to other drugs, medicaments and biological substances
CPT/HCPCS: 36415; 80053; 83735; 84484; 85025; 85610; 85730; 93005; 96365; 99285; A9270; J1644; 93010